=== PATIENT | female | born 1985 | race African-American/Black ===

== ENCOUNTER 2022-10-29 15:43 | Day surgery (SDC) | payer OTHER ==
[2022-10-29 18:06] VITALS: BMI 33.7
== END 2022-10-29 18:25 | disposition home or self-care (01) ==
LOC: CSHLD/OP 15:43
PROVIDERS: ATTEND Family Medicine
DX: O30.043 Twin pregnancy, dichorionic/diamniotic, third trimester (principal); Z3A.32 32 weeks gestation of pregnancy
CPT/HCPCS: 59025; 76819; 99282

== ENCOUNTER 2022-11-05 15:18 | Day surgery (SDC) | payer OTHER ==
[2022-11-05 19:22] VITALS: BMI 33.6
== END 2022-11-05 19:25 | disposition left against medical advice (07) ==
LOC: CSHLD/OP 15:18
PROVIDERS: ATTEND Family Medicine
DX: O30.043 Twin pregnancy, dichorionic/diamniotic, third trimester (principal); Z36.4 Encounter for antenatal screening for fetal growth retardation; Z3A.33 33 weeks gestation of pregnancy
CPT/HCPCS: 59025; 76810; 76815; 76819; 99281